=== PATIENT | male | born 1965 | race Caucasian/White ===

== ENCOUNTER 2017-10-05 16:54 | Inpatient (IN) | payer MEDICARE ==
--- NOTE | 2017-10-05 18:13 | RAD ---
PA AND LATERAL CHEST RADIOGRAPH: Date: 10-05-17 History: Body aches, cough, congestion. Comparison: 01-14-17 FINDINGS: The cardiac silhouette and pulmonary vasculature are within normal limits. Again noted is evidence of prior granulomatous disease. Lungs are otherwise clear. There has been no interval change when alex red to the prior exam. IMPRESSION: No acute cardiopulmonary process. POS: H
[2017-10-05] MEDS ORDERED: methylPREDNISolone Sod Succ/PF 125 MG/2 ML VIAL ONE (18:54)
[2017-10-05] MEDS ORDERED: Ketorolac Tromethamine 30 MG/ML VIAL ONE (19:02)
[2017-10-05] MEDS ORDERED: Magnesium Sulfate 2 GM/100 ML BAG ONE (20:45)
[2017-10-05] MEDS ORDERED: Sulfameth/Trimethoprim DS 800-160mg TAB ONE (21:47)
[2017-10-05] MEDS ORDERED: CEFTRIAXONE 2GM/50 ML BAG 2 GM in Premix Bag 1 BAG IVPB SCH (22:00)
[2017-10-05] MEDS ORDERED: Azithromycin 500 MG in Sodium Chloride 0.9% 250 ML 250 ML IVPB SCH (22:00)
[2017-10-05] MEDS ORDERED: Ondansetron ODT 4 MG TAB SL PRN (23:17)
[2017-10-05] MEDS ORDERED: Sodium Chloride 0.9% 1,000 ML IV SCH (23:17)
[2017-10-05] MEDS ORDERED: Ondansetron HCl/PF 4 MG/2 ML Vial IVP PRN (23:17)
[2017-10-06 00:07] VITALS: BMI 25.8
[2017-10-06] MEDS ORDERED: cloNIDine 0.1 MG TAB PO PRN ×2 (01:33)
[2017-10-06] MEDS ORDERED: hydrALAZINE 20 MG/ML VIAL SLOW IVP PRN (01:33)
[2017-10-06] MEDS ORDERED: Ondansetron HCl/PF 4 MG/2 ML Vial IVP PRN (01:33)
[2017-10-06] MEDS ORDERED: Ondansetron ODT 4 MG TAB PO PRN (01:33)
--- NOTE | 2017-10-06 03:20 | HP ---
DATE OF ADMISSION: 10/05/2017 PRIMARY CARE PHYSIC[place]. CHIEF COMPLAINT: Shortness of breath. HISTORY OF PRESENT ILLNESS: This is a 51-year-old male who presents to [facility] complaining of increased cough, shortness of breath when wheezing. Patient states he has had progressive shortness of breath with wheezing over the last 2-3 days. Patient also admitted to associated body aches, sinus congestion, and subjective fever. Patient admits to history of COPD on chronic inhalers, but states he has been compliant with his medication regimen. Patient does admi t to some chest tightness associated with cough, subjective fever, and shortness of breath. Patient denies any known sick contacts or family members with similar symptoms. Patient denies any current c igarette use, however, admits to using marijuana. In the emergency room, patient underwent general e valuation including chest imaging showing no acute infiltrate. Patient underwent screening influenza , nasal swab, which was negative. Patient received multiple medications including Rocephin, Zithroma x, and Bactrim-DS. Patient also received magnesium sulfate, bronchodilator therapy with DuoNebs, IV Solu-Medrol, normal saline, and Toradol. Patient was also placed on BiPAP noninvasive mechanical jack tilation with overall stabilization of respiratory status. PAST MEDICAL HISTORY: 1. Chronic obstructive pulmonary disease with intermittent exacerbation. 2. Marijuana use. 3. Hypertension. 4. History of asthma. 5. History of left-forearm compartment syndrome. 6. Bipolar disorder. PAST SURGICAL HISTORY: 1. Status post open reduction and internal fixation of right lower extremity. 2. Status post left arm fasciotomy after crush injury. CURRENT MEDICATIONS: 1. Proventil HFA 2 puffs inhaled q.4-6 hours p.r.n. 2. Norvasc 5 mg 1 tablet p.o. daily. 3. Symbicort 160/4.5 one puff inhaled b.i.d. 4. Catapres 0.1 mg p.o. q.4 hours p.r.n. 5. Spiriva HandiHaler 18 mcg inhaled daily. 6. DuoNeb 3 mL nebulized q.i.d. p.r.n. ALLERGIES: No known drug allergies. FAMILY HISTORY: Positive for coronary artery disease and hypertension. SOCIAL HISTORY: Smokes marijuana. No cigarettes use. No alcohol. Resides in [place], [place]. REVIEW OF SYSTEMS: The following complete review of systems was otherwise negative, except as stated per HPI: Constitutional: Weight loss or gain, ability to conduct usual activities. Skin: Rash, itching. Eyes: Double vision, pain. ENT/Mouth: Nose bleeding, neck stiffness, pain, tenderness. Cardiovascular: Palpitations, dyspnea on exertion, orthopnea. Respiratory: Shortness of breath, wheezing, cough, hemoptysis, fever, or night sweats. Gastrointestinal: Poor appetite, abdominal pain, heartburn, nausea, vomiting, constipation, or diarr hea. Genitourinary: Urgency, frequency, dysuria, nocturia. Musculoskeletal: Pain, swelling. Neurologic/Psychiatric: Anxiety, depression. Allergy/Immunologic: Skin rash, bleeding tendency. PHYSICAL EXAMINATION: VITAL SIGNS: On admission blood pressure 161/92, pulse 78, respiratory rate 22, temperature 98.5 deg cam Fahrenheit, O2 saturation 97% on 2 liters per minute by nasal cannula. GENERAL APPEARANCE: This is a 51-year-old male in [id number] respiratory distress. HEENT: Pupils are equal, round, and reactive to light and accommodation. Extraocular muscles are in tact. No scleral icterus, no conjunctival injection. Nares patent. OP is clear. Teeth in fair rep air. NECK: Supple, no cervical adenopathy, no thyromegaly, no carotid bruits, no JVD appreciated. Cervic al spine with full active and passive range of motion. No meningeal signs appreciated. CHEST: Diminished breath sounds with occasional wheezing in bilateral lung javier. CARDIOVASCULAR: S1, S2 with tachycardia. ABDOMEN: Rounded, soft, nontender, nondistended. Bowel sounds are positive in all four quadrants. There is no hepatosplenomegaly, no abdominal bruits, no rebound or guarding appreciated. EXTREMITIES: Warm and dry with fair turgor. No clubbing, cyanosis, or asymmetric edema appreciated. Pulses palpable distally at the dorsalis pedis, posterior tibial, and popliteal arteries bilaterall y. Capillary refill less than 2 seconds. NEUROLOGIC: Cranial nerves II-XII are grossly intact. No focal or lateralizing signs appreciated. PERTINENT LABORATORY DATA AND X-RAY FINDINGS: No current labs available for review. Influenza A and B antigen negative from 10/05/2017. Portable chest x-ray dated 10/05/2017 showed no acute cardiopul monary process. ASSESSMENT AND PLAN: 1. Acute hypoxemic respiratory failure secondarily to #2. We will continue aggressive pulmonary sup portive measures. Continue Solu-Medrol 40 mg IV q.6 hours. Continue Augmentin 875 mg p.o. b.i.d. C ontinue Combivent metered-dose inhaler 1 puff inhaled b.i.d. Update influenza and pneumonia vaccinati on prior to discharge. 2. Acute chronic obstructive pulmonary disease exacerbation. See #1 above. Continue bronchodilator therapy as outlined previously. Continue Solu-Medrol. 3. Marijuana use. We will offer cessation resources prior to discharge. 4. Prophylaxis. Sequential compression devices while in bed. Pepcid 20 mg p.o. b.i.d. Influenza a nd pneumonia vaccination prior to discharge. 5. Code status is FULL. Surrogate medical decision maker is Stiven Herbert, patient's brother.
[2017-10-06 06:17] LABS: Anion Gap 13 mmol/L (10-20); BUN (Urea Nitrogen) 14 mg/dL (8.4-25.7); Band 1 % (5-11); Calc. Creatinine Clearance 141 mL/min (70-130); Calcium 9.1 mg/dL (7.8-10.44); Carbon Dioxide 21 mmol/L (22-29); Chloride 105 mmol/L (98-107); Estimated GFR-MDRD Greater than 90; Glucose 202 mg/dL (70-105); Hemoglobin 14.8 g/dL (14.0-18.0); Lymphocytes 12 % (21-51); MDiff Complete? YES; Mean Corpuscular HGB CONC 32.8 g/dL (32.0-36.0); Mean Corpuscular Hemoglobin 29.5 pg (27.0-31.0); Mean Platelet Volume 9.5 fL (7.4-10.4); Monocytes 2 % (0-10); Neutrophil 85 % (42-75); PLT Morphology Comment Appears Adequate; Platelet Count 144 thou/uL (130-400); RBC Distribution Width 11.8 % (11.5-14.5); RBC Morphology Normal; Red Blood Cell (RBC) Count 5.03 mill/uL (4.70-6.10); Sodium 135 mmol/L (136-145); White Blood Cell (WBC) Count 6.3 thou/uL (4.8-10.8)
[2017-10-06] MEDS: Amlodipine 5 MG TAB PO SCH (08:30)
[2017-10-06] MEDS: Famotidine 20 MG TAB PO SCH ×2 (08:30→22:06)
[2017-10-06] MEDS: Amoxicillin/Potassium Clav 875 MG TAB PO SCH ×2 (08:31→22:03)
[2017-10-06] MEDS ORDERED: Non-Formulary Item 1 EACH (Budesonide-Formoterol [Symbicort 160-4.5] 1 PUFF) INH SCH (09:00)
[2017-10-06] MEDS ORDERED: Sulfameth/Trimethoprim DS 800-160mg TAB PO SCH (09:00)
[2017-10-06] MEDS ORDERED: Spiriva 18 MCG CAP (Box of 5 Caps) INH SCH (09:00)
[2017-10-06] MEDS: Ipratropium Bromide 2.5 ml Neb NEB SCH ×3 (09:02→18:36)
[2017-10-06] MEDS: Mometasone/Formoterol 120 PUFF INHALER INH SCH ×2 (09:03→18:37)
--- NOTE | 2017-10-06 13:18 | PDOC.PN ---
- Subjective Encounter Start Date: 10/06/17 Encounter Start Time: 12:25 Subjective: breathing better, no sob -: is off bipap - Objective Resuscitation Status: Resuscitation Status FULL:Full Resuscitation MAR Reviewed: Yes Vital Signs & Weight: Vital Signs (12 hours) Temp Pulse Resp BP BP Pulse Ox 10/06/17 12:00 98.5 F 95 95 H 168/92 H 95 10/06/17 09:02 96 16 95 10/06/17 08:30 98 172/103 H 10/06/17 08:00 98.1 F 87 20 173/93 H 95 10/06/17 02:00 98.6 F 98 20 156/95 H 95 Weight Weight 201 lb 7 oz I&O: 10/05/17 10/06/17 10/07/17 06:59 06:59 06:59 Intake Total 1560 Output Total 1700 Balance -140 Result Diagrams: 10/06/17 05:39 10/06/17 05:39 Phys Exam - Physical Examination HEENT: PERRLA, moist MMs Neck: no JVD, supple Respiratory: no wheezing, no rales rhonchi+ Cardiovascular: RRR, no significant murmur Gastrointestinal: soft, non-tender, positive bowel sounds Musculoskeletal: no edema, pulses present Neurological: non-focal, moves all 4 limbs Psychiatric: A&O x 3 Dx/Plan (1) COPD exacerbation Code(s): J44.1 - CHRONIC OBSTRUCTIVE PULMONARY DISEASE W (ACUTE) EXACERBATION Status: Acute Comment: resolving (2) Acute respiratory failure with hypoxia Code(s): J96.01 - ACUTE RESPIRATORY FAILURE WITH HYPOXIA Status: Resolved (3) HTN (hypertension) Code(s): I10 - ESSENTIAL (PRIMARY) HYPERTENSION Status: Chronic Qualifiers: Hypertension type: essential hypertension Qualified Code(s): I10 - Essential (primary) hypertension (4) Mild tetrahydrocannabinol (THC) abuse Code(s): F12.10 - CANNABIS ABUSE, UNCOMPLICATED Status: Chronic - Plan off bipap, almost on room air now -: duonebs, steroids and empiric augmentin -: dc plan in am-home -: tx to med floor -: to amb in hallway as tolerated * . Review of Systems - Medications/Allergies Allergies/Adverse Reactions: Allergies Allergy/AdvReac Type Severity Reaction Status Date / Time No Known Drug Allergies Allergy Verified 10/06/17 00:13 Medications: Current Medications Acetaminophen (Tylenol) 1,000 mg PO Q6H PRN PRN Reason: Headache/Fever or Mild Pain Albuterol/Ipratropium (Duoneb) 3 ml NEB Q4H PRN PRN Reason: SOB &/or Wheezing Amlodipine Besylate (Norvasc) 5 mg PO DAILY [facility] Last Admin: 10/06/17 08:30 Dose: 5 mg Amoxicillin/Clavulanate Potassium (Augmentin) 875 mg PO BID [facility] Last Admin: 10/06/17 08:31 Dose: 875 mg Clonidine (Catapres) 0.1 mg PO Q4H PRN PRN Reason: Systolic BP > 180 Clonidine (Catapres) 0.1 mg PO Q4H PRN PRN Reason: Systolic BP > 180/ DBP >100 Famotidine (Pepcid) 20 mg PO BID [facility] Last Admin: 10/06/17 08:30 Dose: 20 mg Hydralazine HCl (Apresoline) 10 mg SLOW IVP Q4H PRN PRN Reason: Systolic BP > 180 Influenza Virus Vaccine (Fluzone Quad [id number] Syringe) 0.5 ml IM .ONCE ONE Stop: 10/07/17 09:01 Ipratropium [place] (Atrovent) 2.5 ml NEB [id number] [facility] Last Admin: 10/06/17 09:02 Dose: 2.5 ml Methylprednisolone Sodium Succinate (Solu-Medrol) 40 mg IVP Q6HR [facility] Last Admin: 10/06/17 13:02 Dose: 40 mg Mometasone Furoate/Formoterol Fumar (Dulera 200 Mcg/5 Mcg Inhaler) 1 puff INH BID-RT [facility] Last Admin: 10/06/17 09:03 Dose: 1 puff Ondansetron HCl (Zofran Odt) 4 mg PO Q6H PRN PRN Reason: Nausea/Vomiting Ondansetron HCl (Zofran) 4 mg IVP Q6H PRN PRN Reason: Nausea/Vomiting Pneumococcal Polyvalent Vaccine (Pneumovax 23) 0.5 ml IM .ONCE ONE Stop: 10/07/17 09:01
[2017-10-06] MEDS: Acetaminophen 500 MG TAB PO PRN (17:01)
[2017-10-07] MEDS: Ipratropium Bromide 2.5 ml Neb NEB SCH ×3 (00:20→11:05)
[2017-10-07] MEDS: Mometasone/Formoterol 120 PUFF INHALER INH SCH (06:33)
[2017-10-07 07:55] VITALS: TEMP 98.1
[2017-10-07] MEDS: Amoxicillin/Potassium Clav 875 MG TAB PO SCH (08:29)
[2017-10-07] MEDS: Amlodipine 5 MG TAB PO SCH (08:30)
[2017-10-07] MEDS: Famotidine 20 MG TAB PO SCH (08:30)
[2017-10-07] MEDS: Acetaminophen 500 MG TAB PO PRN (08:41)
[2017-10-07] MEDS ORDERED: FLU VACC QS2017-18 36 mo. & older 0.5 ML SYRINGE IM ONE (09:00)
[2017-10-07 09:55] VITALS: BP 174/102
--- NOTE | 2017-10-07 14:22 | DIS ---
DATE OF ADMISSION: 10/05/2017 DATE OF DISCHARGE: 10/07/2017 DISCHARGE DIAGNOSES: 1. Acute hypoxemic respiratory failure secondary to #2. 2. Acute chronic obstructive pulmonary disease exacerbation. 3. Hypertension, stable. 4. Marijuana use. CONSULTATIONS: None. PERTINENT LABORATORY AND X-RAY FINDINGS: Influenza A and B antigen negative, 10/05/2017. Blood cult ures x2 dated 10/05/2014 showed no growth to date. Portable chest x-ray dated 10/05/2017 showed no a cute cardiopulmonary process. HOSPITAL COURSE: Patient was admitted to the intermediate care unit after initially presenting with severe respiratory distress with associated hypoxemia. The patient was treated with BiPAP noninvasiv e mechanical ventilation and given IV Rocephin and Zithromax and Bactrim-DS in addition to DuoNeb and Solu-Medrol in the emergency department. The patient stabilized in less than 24 hours in the [facility], transitioning to oxygen by nasal cannula. The patient continued on Augmentin 875 m g b.i.d. in addition to Solu-Medrol and bronchodilator therapy. The patient overall remained clinica lly stable through the hospital course, transitioning to room air with O2 saturations maintained in t he mid 90% range by the time of discharge. The patient overall is clinically stable and ready for di [facility] 10/07/2017. DISCHARGE MEDICATIONS: 1. Augmentin 875 mg 1 tab p.o. b.i.d. x7 days. 2. Prednisone 10 mg 2 tabs p.o. b.i.d. x3 days, followed by 3 tabs p.o. daily x3 days, followed by 2 tabs p.o. daily x3 days, followed by 1 tab p.o. daily x3 days. 3. Proventil HFA 2 puffs inhaled q.4-6 hours. p.r.n. 4. Amlodipine 5 mg 1 tab p.o. daily. 5. Symbicort 160/4.5 1 puff inhaled b.i.d. 6. Clonidine 0.1 mg p.o. q.4 hours as needed for systolic blood pressure over 180. 7. DuoNeb 3 mL nebulized q.i.d. p.r.n. 8. Spiriva HandiHaler 18 mcg inhaled daily. FOLLOWUP: The patient may follow up with his primary care provider at [place], [place], connie weinberg 7 days of discharge. CONDITION ON DISCHARGE: Stable. ACTIVITY: Ad hernandez. DIET: Regular. CODE STATUS: FULL. DISPOSITION: Home, 10/07/2017.
== END 2017-10-07 12:05 | disposition home or self-care (01) | DRG 189 ==
LOC: ERS 16:54 → IMCU/EMU 23:02 → T4-A 10-06 16:19
PROVIDERS: ADMIT Emergency Medicine; ATTEND Emergency Medicine
PROC: 5A09357 Assistance with Respiratory Ventilation, Less than 24 Consecutive Hours, Continuous Positive Airway Pressure (ICD-10-PCS; principal; 2017-10-05)
DX: J96.01 Acute respiratory failure with hypoxia (principal); J44.1 Chronic obstructive pulmonary disease with (acute) exacerbation; I10 Essential (primary) hypertension; F31.9 Bipolar disorder, unspecified; F12.90 Cannabis use, unspecified, uncomplicated; Z79.899 Other long term (current) drug therapy
CPT/HCPCS: 36415; 71046; 80048; 85007; 85027; 87040; 90471; 90682; 90732; 94640; 94660; 96361; 96365; 96375; G0008; G0009; J0360; J0456; J0696; J1885; J2920; J2930; J3475; J7050; J7620; J7644; Q2036

== ENCOUNTER 2021-11-10 18:35 | Emergency (ER) | payer MEDICARE ==
[~2021-11-10 18:35] MED LIST: Iopamidol 370 76% 100 ML VIAL ONE
[2021-11-10] MEDS ORDERED: Boostrix 0.5 ML (Tdap) VIAL ONE (18:39)
[2021-11-10] MEDS ORDERED: CEFAZOLIN 1 GM VIAL ONE (18:39)
[2021-11-10] MEDS ORDERED: Xylocaine 1% w/ Epi 1:100K 10 ML VIAL ONE (19:13)
[2021-11-10] MEDS ORDERED: Lidocaine 1% PF 5 ML VIAL ONE (20:53)
[2021-11-10] MEDS ORDERED: Bacitracin 1 PK ONE (21:14)
== END 2021-11-10 21:45 | disposition home or self-care (01) ==
LOC: ERS 18:35
DX: S28.0XXA Crushed chest, initial encounter (principal); S21.111A Laceration without foreign body of right front wall of thorax without penetration into thoracic cavity, initial encounter; I10 Essential (primary) hypertension; J44.9 Chronic obstructive pulmonary disease, unspecified; Z87.891 Personal history of nicotine dependence; W20.8XXA Other cause of strike by thrown, projected or falling object, initial encounter
CPT/HCPCS: 12002; 71045; 71260; 90471; 90715; 96365; G0390; J0690; Q9967